=== PATIENT | female | born 1960 | race Caucasian/White ===

== ENCOUNTER 2025-10-04 13:39 | Outpatient (CLI) | payer MEDICARE, BC | END 2025-10-04 13:40 | disposition home or self-care (01) | LOC: CSHCT 13:39 | PROVIDERS: ATTEND Internal Medicine | DX: Z12.2 Encounter for screening for malignant neoplasm of respiratory organs (principal); F17.210 Nicotine dependence, cigarettes, uncomplicated; R91.1 Solitary pulmonary nodule; J44.9 Chronic obstructive pulmonary disease, unspecified; R59.0 Localized enlarged lymph nodes | CPT/HCPCS: 71271; 94060; 94618; 94664; 94726; 94729 ==